=== PATIENT | female | born 1980 | race Caucasian/White ===

== ENCOUNTER 2022-03-29 15:01 | Outpatient (CLI) | payer BC, SELFPAY ==
--- OUTSIDE RECORDS SUMMARY | 2022-02-25 08:55 | XMS_ITS | Continuity of Care Document ---
:1980 Author Allergies, Adverse Reactions, Alerts No known allergies Social History Smoking Status Status Start Date End Date Date of Observat ion Never smoked tobacco September 10:57am (finding) Additional Data Assigned Sex Female Problems Active Problems Medical Problem Onset Date Status Depression Active Anxiety Active History of delivery Active Medications Medication Status Dose Units Route Directions Qty Days Start End Ins tructions Date Date Citalopram Active 40 MG PO Daily 30 Hydrobromide Insurance Providers Guarantor Ysabel Hernandez Address [address] [address] Contact Info. Home Phone: Payer Policy Id Coverage Id Subscriber's Subscriber Id Effective E xpiration Name Date Date Blue [id number] David, September 04, [address] 2020 [id number]
--- NOTE | 2022-03-29 15:20 | CRLHL7_ITS ---
For Patients: As a result of the Century Cures Act, medical imaging exams and procedure reports are released immediately into your electronic medical record. You may view this report before your referring provider. If you have questions, please contact your health care provider. BILATERAL MAMMOGRAM WITH COMPUTER-AIDED DETECTION TECHNIQUE: CC and MLO views were obtained. These mammographic images have been obtained using full-field digital technique. These mammographic images were interpreted with the benefit of computer-aided detection. COMPARISON FILM: None. Baseline study. FINDINGS: There are scattered areas of fibroglandular density IMPRESSION: There is no radiographic evidence for malignancy. ASSESSMENT: BI-RADS Category 1: Negative RECOMMENDATION: Routine screening mammogram in 1 year. A lay language report of this examination will be provided to the patient. Rene Hopson M.D. Diagnostic/Musculoskeletal Radiologist [email or web address] Transcribed: 8:[address]/Dictated by: Rene Hopson MD @ 03/30/2022 9:39:00 AM (Electronically Signed)
== END 2022-03-29 15:02 | disposition home or self-care (01) ==
LOC: MAMMO 15:02
PROVIDERS: Visit Provider Obstetrics & Gynecology
DX: Z12.31 Encounter for screening mammogram for malignant neoplasm of breast (principal)
CPT/HCPCS: 77067

== ENCOUNTER 2022-07-29 16:31 | Outpatient (CLI) | payer BC, SELFPAY ==
[2022-07-29 17:12] LABS: Strep A DNA Probe* NOT DETECTED (Not Detectd)
== END 2022-07-29 16:32 | disposition home or self-care (01) ==
PROVIDERS: Visit Provider Registered Nurse
DX: R05.9 Cough, unspecified (principal); R53.83 Other fatigue; R51.9 Headache, unspecified
CPT/HCPCS: 87651

== ENCOUNTER 2023-07-25 08:40 | Outpatient (CLI) | payer BC, SELFPAY ==
--- NOTE | 2023-07-25 08:45 | CRLHL7_ITS ---
For Patients: As a result of the Century Cures Act, medical imaging exams and procedure reports are released immediately into your electronic medical record. You may view this report before your referring provider. If you have questions, please contact your health care provider. BILATERAL SCREENING MAMMOGRAM WITH COMPUTER-AIDED DETECTION TECHNIQUE: CC and MLO views were obtained. These mammographic images have been obtained using full-field digital technique. These mammographic images were interpreted with the benefit of computer-aided detection. COMPARISON FILM: 03/29/22. FINDINGS: There are scattered areas of fibroglandular density IMPRESSION: There is no radiographic evidence for malignancy. ASSESSMENT: BI-RADS Category 1: Negative RECOMMENDATION: Routine screening mammogram in 1 year. A lay language report of this examination will be provided to the patient. Kwame Cross M.D. Diagnostic Radiologist [email or web address] FAREED/Dictated by: Kwame Cross MD @ 07/25/2023 9:33:00 AM (Electronically Signed)
== END 2023-07-25 08:41 | disposition home or self-care (01) ==
LOC: MAMMO 08:42
PROVIDERS: PCP Registered Nurse; Visit Provider Registered Nurse
DX: Z12.31 Encounter for screening mammogram for malignant neoplasm of breast (principal)
CPT/HCPCS: 77067

== ENCOUNTER 2023-10-10 14:35 | Outpatient (CLI) | payer BC, SELFPAY ==
[2023-10-10 19:27] LABS: Chlamydia DNA Amplified* Not Detected (No Detected); GC DNA Amplified* Not Detected (No Detected)
== END 2023-10-10 14:36 | disposition home or self-care (01) ==
PROVIDERS: PCP Registered Nurse; Visit Provider Registered Nurse
DX: R63.5 Abnormal weight gain (principal); Z11.3 Encounter for screening for infections with a predominantly sexual mode of transmission; Z13.220 Encounter for screening for lipoid disorders; Z13.1 Encounter for screening for diabetes mellitus
CPT/HCPCS: 80061; 82947; 84443; 87491; 87591